=== PATIENT | female | born 1990 | race Caucasian/White ===

== ENCOUNTER 2024-03-06 12:24 | Emergency (ER) | payer OTHER ==
--- NOTE | 2024-03-06 12:43 | ED ---
General Adult HPI - General Chief complaint: Vaginal Bleeding Stated complaint: 12wks, vaginal bleeding Time Seen by Provider: 03/06/24 12:35 Source: patient Mode of arrival: wheelchair Limitations: no limitations - History of Present Illness Initial comments: Dictation was produced using Get[employer]ue dictation software. please excuse any grammatical, word or spelling errors. Chief Complaint: 33-year-old female presents with pelvic pain and vaginal bleeding History of Present Illness: Patient 33-year-old female she states that she was given some Cytotec today. She is allegedly 12 weeks . She had an ultrasound few days ago that showed no intrauterine . She was given some Cytotec prescribed by MINING SPECULATOR this morning. After taking the Cytotec she started to have intense vaginal bleeding and lower abdominal pain. Patient complaining of lightheadedness. Denies any comorbidities. The ROS documented in this emergency department record has been reviewed and confirmed by me. Those systems with pertinent positive or negative responses have been documented in the HPI. All other systems are other negative and/or noncontributory. - Related Data Allergies Allergy/AdvReac Type Severity Reaction Status Date / Time No Known Allergies Allergy Verified 03/06/24 12:34 Review of Systems ROS Statement: Those systems with pertinent positive or pertinent negative responses have been documented in the HPI. ROS Other: All systems not noted in ROS Statement are negative. Past Medical History Past Medical History: No Reported History History of Any Multi-Drug Resistant Organisms: None Reported Past Surgical History: No Surgical Hx Reported Past Psychological History: Anxiety Smoking Status: Never smoker Past Alcohol Use History: None Reported Past Drug Use History: None Reported General Exam - General Exam Comments Initial Comments: PHYSICAL EXAM: General Impression: Alert and oriented x3, acute distress secondary to pain, pale HEENT: Normocephalic atraumatic, extra-ocular movements intact, pupils equal and reactive to light bilaterally, mucous membranes moist. Cardiovascular: Heart regular rate and rhythm Chest: Able to complete full sentences, no retractions, no tachypnea Abdomen: abdomen soft, palpatory tenderness to the lower abdomen, non-distended, no organomegaly Musculoskeletal: Pulses present and equal in all extremities, no peripheral edema Motor: no focal deficits noted Neurological: CN II-XII grossly intact, no focal motor or sensory deficits noted Skin: Intact with no visualized rashes Limitations: no limitations Course Vital Signs 03/06/24 03/06/24 03/06/24 12:32 12:41 13:04 Temperature 98.7 F Pulse Rate 87 62 73 Respiratory 18 20 20 Rate Blood Pressure 74/53 107/60 75/38 O2 Sat by Pulse 100 98 Oximetry 03/06/24 13:09 Temperature Pulse Rate 67 Respiratory 20 Rate Blood Pressure 115/74 O2 Sat by Pulse 98 Oximetry - Reevaluation(s) Reevaluation #1: 03/06/24 12:[address] Gonzalez on-call for MINING SPECULATOR. She was seen at the bedside pelvic ultrasound. Medical Decision Making - Medical Decision Making Was pt. sent in by a medical professional or institution (, PA, AVIATION PROJECT ENGINEER, urgent care, hospital, or usp...) When possible be specific @ -No Did you speak to anyone other than the patient for history (EMS, parent, family, police, friend...)? What history was obtained from this source @ -Some history obtained by family numbers at the bedside as described above Did you review nursing and triage notes (agree or disagree)? Why? @ -I reviewed and agree with nursing and triage notes Were old charts reviewed (outside hosp., previous admission, EMS record, old EKG, old radiological studies, urgent care reports/EKG's, usp records)? Report findings @ -No old charts were reviewed Differential Diagnosis (chest pain, altered mental status, abdominal pain women, abdominal pain men, vaginal bleeding, musculoskeletal, weakness, fever, dyspnea, syncope, headache, dizziness, GI bleed, back pain, seizure, CVA, palpatations, mental health)? @ -Differential Vaginal Bleeding: Spontaneous , threatened , molar , ectopic , bloody show, incompetent cervix, abruptioplacenta, placenta previa, uterine rup ture, dysfunctional uterine bleeding, hemorrhage, uterine fibroids, this is not meant to be an all-inclusive list. EKG interpreted by me (3pts min.). @ -None done X-rays interpreted by me (1pt min.). @ -None done CT interpreted by me (1pt min.). @ -None done U/S interpreted by me (1pt. min.). @ -Ultrasound pelvis shows intrauterine sac What testing was considered but not performed or refused? (CT, X-rays, U/S, labs)? Why? @ -None What meds were considered but not given or refused? Why? @ -None Was smoking cessation discussed for >3mins.? @ -No Were there social determinants of health that impacted care today? How? (Homelessness, low income, unemployed, alcoholism, drug addiction, transportation, low edu. Level, literacy, decrease access to med. care, usp, rehab)? @ -No Was there de-escalation of care discussed even if they declined (Discuss DNR or withdrawal of care, Hospice)? DNR status @ -No What co-morbidities impacted this encounter? (DM, HTN, Smoking, COPD, CAD, Cancer, CVA, ARF, Chemo, Hep., AIDS, mental health diagnosis, sleep apnea, morbid obesity)? @ -None Was patient admitted / discharged? Hospital course, mention meds given and route, prescriptions, significant lab abnormalities, going to OR and other pertinent info. @ -33-year-old female presents emergency department with intense pelvic pain vaginal bleeding after taking Cytotec for miscarriage. She is allegedly 12 weeks. Appears to be in significant distress upon initial evaluation initial blood pressure 74/53. Repeat blood pressures continue to be low. O on-call MINING SPECULATOR was contacted immediately. Patient given 1 g of tranexamic acid. Ultrasound was performed. On-call MINING SPECULATOR at the bedside to view ultrasound. Plan is for patient to go to the operating room for care with MINING SPECULATOR Did you discuss the management of the patient with other professionals (professionals i.e. , PA, AVIATION PROJECT ENGINEER, lab, RT, psych nurse, social and political studies professor, ell tutor, teacher, air control/anti air warfare officer, case preparer and liner)? Give summary @ -See above Was critical care preformed (if so, how long)? @ -33 minutes Undiagnosed new problem with uncertain prognosis? @ -No Drug Therapy requiring intensive monitoring for toxicity (Heparin, Nitro, Insulin, Cardizem)? @ -No Were any procedures done? @ -No Diagnosis/symptom? Acute, or Chronic, or Acute on Chronic? Uncomplicated (without systemic symptoms) or Complicated (systemic symptoms)? @ -Vaginal bleeding complicated by hypotension Side effects of treatment? @ -No Exacerbation, Progression, or Severe Exacerbation? @ -No Poses a threat to life or bodily function? How? (Chest pain, USA, MD, pneumonia, PE, COPD, DKA, ARF, appy, cholecystitis, CVA, Diverticulitis, Homicidal, Suicidal, threat to staff... and all critical care pts) @ -yes - Lab Data Result diagrams: 03/06/24 12:45 Lab Results 03/06/24 03/06/24 Range/Units 12:45 12:45 WBC 21.7 H (3.8-10.6) k/uL RBC 4.40 (3.80-5.40) m/uL Hgb 13.5 (11.4-16.0) gm/dL Hct 40.4 (34.0-46.0) % MCV 91.7 (80.0-100.0) fL MCH 30.5 (25.0-35.0) pg MCHC 33.3 (31.0-37.0) g/dL RDW 12.3 (11.5-15.5) % Plt Count 276 (150-450) k/uL MPV 8.3 Neutrophils % 91 % Lymphocytes % 5 % Monocytes % 3 % Eosinophils % 0 % Basophils % 0 % Neutrophils # 19.8 H (1.3-7.7) k/uL Lymphocytes # 1.0 (1.0-4.8) k/uL Monocytes # 0.6 (0-1.0) k/uL Eosinophils # 0.1 (0-0.7) k/uL Basophils # 0.0 (0-0.2) k/uL Blood Type Recheck No Previous Record Bld Type Recheck Status CABO Indicated Disposition Clinical Impression: Vaginal bleeding Disposition: ADMITTED IP TO THIS [facility] Condition: Critical Referrals: None,Stated [Primary Care Provider] - 1-2 days Decision Time: 13:13
[2024-03-06 12:55] LABS: Basophils % (A) 0 %; Eosinophils # (A) 0.1 k/uL (0-0.7); Eosinophils % (A) 0 %; HCT 40.4 % (34.0-46.0); HGB 13.5 gm/dL (11.4-16.0); Lymphocytes % (A) 5 %; MCH 30.5 pg (25.0-35.0); MCHC 33.3 g/dL (31.0-37.0); MCV 91.7 fL (80.0-100.0); Mean Platelet Volume 8.3; Monocytes # (A) 0.6 k/uL (0-1.0); Monocytes % (A) 3 %; Neutrophils # (A) 19.8 k/uL (1.3-7.7); Neutrophils % (A) 91 %; Platelet Count 276 k/uL (150-450); RDW 12.3 % (11.5-15.5); WBC 21.7 k/uL (3.8-10.6)
[2024-03-06] MEDS: MORPHINE SULFATE 4 MG/ML SYRINGE IVP PRN (13:04)
[2024-03-06] MEDS: TRANEXAMIC 1,000 MG/100ML-NACL 1,000 MG in SALINE 1 100ML.BAG IVPB ONE (13:11)
[2024-03-06 13:13] LABS: Partial Thromboplastin Time 23.2 sec (22.0-30.0); Prothrombin Time 11.2 sec (10.0-12.5)
[2024-03-06] MEDS ORDERED: NALOXONE 0.4 MG/ML 1 ML VIAL IV PRN (13:13)
--- NOTE | 2024-03-06 13:14 | P.HPOB ---
History of Present Illness H&P Date: 03/06/24 Chief Complaint: vaginal bleeding 33 year old presents to ER with significant vaginal bleeding. She was treated with cytotec for an 8 week missed . She had severe cramping and bleeding. BP is going down to 75/38 and she is pale. discussed R/B/A of suction d&C and will do now. Review of Systems All systems: negative Constitutional: Reports chills, Denies fever Eyes: denies blurred vision, denies pain Ears: right: tinnitus Ears, nose, mouth and throat: Denies headache, Denies sore throat Cardiovascular: Denies chest pain, Denies shortness of breath Respiratory: Denies cough Gastrointestinal: Denies abdominal pain, Denies diarrhea, Denies nausea, Denies vomiting Genitourinary: Denies dysuria, Denies hematuria Musculoskeletal: Denies myalgias Integumentary: Denies pruritus, Denies rash Neurological: Denies numbness, Denies weakness Psychiatric: Denies anxiety, Denies depression Endocrine: Denies fatigue, Denies weight change Past Medical History Past Medical History: No Reported History History of Any Multi-Drug Resistant Organisms: None Reported Past Surgical History: No Surgical Hx Reported Past Psychological History: Anxiety Smoking Status: Never smoker Past Alcohol Use History: None Reported Past Drug Use History: None Reported Medications and Allergies Allergies Allergy/AdvReac Type Severity Reaction Status Date / Time No Known Allergies Allergy Verified 03/06/24 12:34 Exam Osteopathic Statement: *. No significant issues noted on an osteopathic structural exam other than those noted in the History and Physical/Consult. Vital Signs Temp Pulse Resp BP Pulse Ox 03/06/24 13:09 67 20 115/74 98 03/06/24 13:04 73 20 75/38 03/06/24 12:41 62 20 107/60 98 03/06/24 12:32 98.7 F 87 18 74/53 100 Intake and Output 03/05/24 03/06/24 03/06/24 22:59 06:59 14:59 Other: Weight 54.431 kg Heart: RRR Lungs: CTAB Abdomen: tender to palpation. good bowel sounds, nondistended Results Result Diagrams: 03/06/24 12:45 Abnormal Lab Results - Last 24 Hours (Table) 03/06/24 Range/Units 12:45 WBC 21.7 H (3.8-10.6) k/uL Neutrophils # 19.8 H (1.3-7.7) k/uL Assessment and Plan (1) Incomplete Status: Acute Code(s): O03.4 - INCOMPLETE SPONTANEOUS WITHOUT COMPLICATION SNOMED Code(s): 376765854 Plan: 1. suction D&C
[2024-03-06] MEDS ORDERED: SODIUM CHLORIDE 0.9% 1,000 ML IV SCH (13:15)
[2024-03-06 13:23] LABS: ALT 49 U/L (4-34); AST 37 U/L (14-36); African American GFR (CKD) >90 (>60 ml/min/1.73 sqM); Albumin 4.4 g/dL (3.5-5.0); Alkaline Phosphatase 52 U/L (38-126); Anion Gap 13 mmol/L; Blood Urea Nitrogen 12 mg/dL (7-17); Calcium 9.5 mg/dL (8.4-10.2); Carbon Dioxide 17 mmol/L (22-30); Chloride 106 mmol/L (98-107); Glucose 140 mg/dL (74-99); Non-African American GFR(CKD) >90 (>60 ml/min/1.73 sqM); Potassium 3.2 mmol/L (3.5-5.1); Sodium 136 mmol/L (137-145); Total Protein 7.1 g/dL (6.3-8.2)
[2024-03-06] MEDS ORDERED: LACTATED RINGERS 1,000 ML IV SCH (13:30)
[2024-03-06] MEDS ORDERED: DEXAMETHASONE SOD PHOSPHATE 4 MG/ML 1 ML VIAL ONE (13:32)
[2024-03-06] MEDS ORDERED: PROPOFOL 10 MG/ML 20 ML VIAL IV ONE (13:32)
[2024-03-06] MEDS ORDERED: FAMOTIDINE 20 MG/2 ML VIAL ONE (13:32)
[2024-03-06] MEDS ORDERED: fentaNYL (PF) 50 MCG/ML 2 ML AMP ONE (13:32)
[2024-03-06] MEDS ORDERED: PHENYLEPHRINE 10 MG/ML VIAL ONE (13:32)
[2024-03-06] MEDS ORDERED: SUCCINYLCHOLINE CHLORIDE 200 MG/10 ML VIAL IV ONE (13:32)
[2024-03-06] MEDS ORDERED: MIDAZOLAM 2 MG/2 ML VIAL ONE (13:32)
[2024-03-06] MEDS ORDERED: LIDOCAINE 1% INJ 10MG/ML (20 ML MDV) ONE (13:32)
[2024-03-06] MEDS ORDERED: METHYLERGONOVINE 0.2 MG/ML 1 ML AMP ONE (13:32)
[2024-03-06] MEDS ORDERED: ONDANSETRON 4 MG/2 ML VIAL ONE (13:32)
[2024-03-06] MEDS: IV FLUID CONTINUATION 1,000 ML IV ONE ×2 (13:34)
[2024-03-06] MEDS: LACTATED RINGERS 1,000 ML IV ONE (14:06)
[2024-03-06 14:18] VITALS: TEMP 97
--- NOTE | 2024-03-06 14:19 | US ---
EXAMINATION TYPE: Transabdominal DATE OF EXAM: 03/06/2024 1:05 PM COMPARISON: NONE CLINICAL INDICATION: Female, 33 years old with history of pelvic pain; Bleeding and pain TECHNIQUE: with grayscale and color Doppler imaging including first trimester . FINDINGS: EXAM MEASUREMENTS: GESTATIONAL AGE / DATING Physician Established: (12 weeks/4 days) EDC: 09/14/2024 Dates by Current Scan for: No pole seen at this time MATERNAL ANATOMY Uterus: 11.9 x 4.9 x 5.0cm Right Ovary: not seen Left Ovary: 2.9 x 1.8 x 1.7cm Bilateral Adnexa: right adnexa appears wnl, left adnexa not imaged GESTATION / SURVEY Gestational Sac: limited images of what appears to be the gestational sac seen within lower uterine s egment Limited exam not completely done due to patient being taken to OR IMPRESSION: 1. Gestational sac may be within the lower uterine segment. Correlate for spontaneous or impending a bortion. [facility], , 03/06/2024 2:16 PM
--- NOTE | 2024-03-06 14:23 | P.OP ---
Date of Procedure: 03/06/24 Preoperative Diagnosis: 1. incomplete Postoperative Diagnosis: 1. incomplete Procedure(s) Performed: suction D&C Anesthesia: BEN Surgeon: Shana Gonzalez Estimated Blood Loss (ml): 100 IV fluids (ml): 1,000 Urine output (ml): 200 Pathology: other (products of conception) Condition: stable Disposition: PACU Operative Findings: large amount products of conception Description of Procedure: taken the operating room where general anesthesia was obtained without difficulty. She prepped draped in normal sterile fashion dorsal lithotomy position, legs placed in the Benito stirrups. Bladder was drained of all urine. Weighted speculum placed in the vagina and anterior lip the cervix was grasped with single-tooth tenaculum. The cervix was fingertip dilated. She was dilated to #14 Hegar dilator. #13 curved suction curet was then introduced into the uterus and passed several times to obtain tissue and blood. Sharp curet was used to ensure all tissue had been removed and the suction curet was passed a few more times. Patient given Methergine to help with the cramping of her uterus. All instruments removed from the vagina. Patient procedure well. Sponge and instrument counts correct 2. She was taken to recovery in stable condition.
[2024-03-06 14:56] VITALS: RESP 16
[2024-03-06 16:20] VITALS: BP 106/68; PULSE 78
[2024-03-07] MEDS ORDERED: HYDROmorphone 0.5 MG/0.5 ML SYRINGE IVP PRN (07:00)
== END 2024-03-06 15:40 | disposition home or self-care (01) ==
LOC: OR 12:24 → 4FBP 13:14 → UNDOADMOB 13:14 → UNDODISOB 15:40 → OR 15:40
DX: O20.9 Hemorrhage in early pregnancy, unspecified (principal); O26.51 Maternal hypotension syndrome, first trimester; Z3A.12 12 weeks gestation of pregnancy
CPT/HCPCS: 96375 ×3; 96376 ×2; 96374 ×2; 99285 ×2; 36415; 86900; 86901; 88305; 80053; 85025; 85610; 85730; 86850; 76801; J2250; J0330; J2270; J1100; J2210; J2405; J2003; J3010; J3490; J2704; J2371